=== PATIENT | male | born 2000 | race Caucasian/White ===

== ENCOUNTER 2025-02-07 02:10 | Emergency (ER) | payer MEDICAID ==
[~2025-02-07] VITALS: Ht 177.8 cm; Wt 111.0 kg
[2025-02-07 02:16] VITALS: BP 142/94; PULSE 107; RESP 18; TEMP 36.7; O2SAT 98
[2025-02-07] MEDS ORDERED: TETANUS, DIPHTHERIA, PERTUSSIS VAC/PF 0.5ML (>10YR OLD) IM ONE (03:00)
[2025-02-07] MEDS ORDERED: LIDOCAINE HCL 1% 20ML VIAL INFIL ONE (03:00)
[2025-02-07] MEDS ORDERED: LIDOCAINE HCL 1% 20ML VIAL INFIL NR (05:00)
[2025-02-07] MEDS ORDERED: IBUP-1455 MT (06:06)
== END 2025-02-07 07:21 | disposition home or self-care (01) ==
LOC: ER 02:10
DX: S01.111A Laceration without foreign body of right eyelid and periocular area, initial encounter (principal); Y09 Assault by unspecified means; Y93.89 Activity, other specified; Y92.89 Other specified places as the place of occurrence of the external cause; Y99.8 Other external cause status
CPT/HCPCS: 80320; 36415; 70450; 70486; 12013; 99284; J2003; Z7610 ×2; 12011; G0480